=== PATIENT | female | born 1950 | race Caucasian/White ===

== ENCOUNTER 2016-05-10 21:39 | Emergency (ER) | payer MEDICAID ==
[~2016-05-10] VITALS: Ht 129.5 cm; Wt 81.6 kg
[2016-05-10 21:54] VITALS: BP 130/82
--- NOTE | 2016-05-10 23:58 | NUR ---
PT TAKEN TO BED 8
--- NOTE | 2016-05-11 00:06 | NUR ---
Dr. Soriano evaluating patient at bedside.
--- NOTE | 2016-05-11 00:18 | NUR ---
PATIENT PRESENTS TO ED WITH LLL PAIN RADIATING TO LT. THIGH AND BACK . PT STATES SHE VISITED A CLINIC IN [place] ON SUNDAY WHERE SHE WAS DIAGNOSED WITH SCIATICA. RASH NOTED POSTERIOR LLL . DENIES N/V/D; SKIN IS PINK/WARM/DRY; AAOX4 WITH EVEN AND STEADY GAIT; LUNGS CLEAR BL; HR EVEN AND REGULAR; PT DENIES ANY FEVER, CP, SOB, OR COUGH AT THIS TIME; PATIENT STATES PAIN OF 10/10 AT THIS TIME; VSS; PATIENT POSITIONED FOR COMFORT; HOB ELEVATED; BEDRAILS UP X2; BED DOWN. ER MD MADE AWARE OF PT STATUS.
[2016-05-11] MEDS ORDERED: KETOROLAC 30 MG/ML VIAL IM ONE (00:25)
[2016-05-11] MEDS ORDERED: HYDROcodone/APAP 5/325 MG 1 TAB TAB PO ONE (00:25)
[2016-05-11 00:55] VITALS: BP 148/93
--- NOTE | 2016-05-11 00:56 | NUR ---
Patient discharged with v/s stable. Written and verbal after care instructions given and explained. Patient alert, oriented and verbalized understanding of instructions. Ambulatory with steady gait. All questions addressed prior to discharge. ID band removed. Patient advised to follow up with PMD. Rx of ACYCLOVIR AND NORCO given. Patient educated on indication of medication including possible reaction and side effects. Opportunity to ask questions provided and answered.
== END 2016-05-11 00:56 | disposition home or self-care (01) ==
LOC: MED 21:39
DX: B02.9 Zoster without complications (principal)
CPT/HCPCS: 96372; 99283; J1885